=== PATIENT | male | born 1985 | race Caucasian/White ===

== ENCOUNTER → 2017-07-29 | Outpatient (CLI) | payer OTHER ==
[~2017-07-29] MED LIST: IOPAMIDOL (ISOVUE-300) 100 ML BTL ONE
== END ==
LOC: FIMAGING 14:02
PROVIDERS: ATTEND Surgery
DX: D13.9 Benign neoplasm of ill-defined sites within the digestive system (principal); K76.0 Fatty (change of) liver, not elsewhere classified
CPT/HCPCS: Q9967